=== PATIENT | female | born 1990 | race Caucasian/White ===

== ENCOUNTER 2025-02-03 18:17 | Outpatient (CLI) | payer BC ==
[2025-02-03 19:21] LABS: Bacteria,Urine Occasional /hpf; Bilirubin,Urine Negative (Negative); Blood,Urine Negative (Negative); Color,Urine Yellow; Glucose,Urine (UA) Negative (Negative); Ketones,Urine Negative (Negative); Leukocyte Esterase,Urine Moderate (Negative); Mucus,Urine Rare /hpf; Nitrite,Urine Negative (Negative); PH, Urine 6.5 (5.0-8.0); Protein,Urine Trace (Negative); RBC,Urine 1 /hpf (0-5); Specific Gravity,Urine 1.022 (1.001-1.035); Squamous Epithelial Cell,Urine 7 /hpf (0-4); Urobilinogen,Urine <2.0 mg/dL (<2.0); WBC,Urine 11 /hpf (0-5)
[2025-02-03] MEDS: ACETAMINOPHEN IV (For NPO) 1,000 MG in EMPTY BAG 1 BAG IVPB ONE (21:04)
[2025-02-03] MEDS: LACTATED RINGERS 1,000 ML IV ONE (21:05)
[2025-02-03 21:24] LABS: Basophils # (A) 0.12 10*3/uL (0.00-0.10); Basophils % (A) 0.7 %; Eosinophils # (A) 0.27 10*3/uL (0.04-0.35); Eosinophils % (A) 1.5 %; HCT 35.7 % (37.2-46.3); HGB 11.9 g/dL (12.0-15.0); Lymphocytes # (A) 3.40 10*3/uL (0.90-5.00); Lymphocytes % (A) 19.2 %; MCH 30.4 pg (27.0-32.0); MCHC 33.3 g/dL (32.0-37.0); MCV 91.1 fL (80.0-97.0); Monocytes # (A) 1.53 10*3/uL (0.20-1.00); Monocytes % (A) 8.6 %; Neutrophils # (A) 11.77 10*3/uL (1.80-7.70); Neutrophils % (A) 66.5 %; Platelet Count 406 10*3/uL (140-440); RBC 3.92 10*6/uL (4.10-5.20); RDW 13.7 % (11.5-14.5); WBC 17.71 10*3/uL (4.50-10.00)
[2025-02-03 21:31] LABS: ALT 23 U/L (4-34); AST 25 U/L (14-36); African American GFR (CKD) >90 (>60 ml/min/1.73 sqM); Albumin 4.0 g/dL (3.5-5.0); Alkaline Phosphatase 149 U/L (38-126); Anion Gap 9 mmol/L; Blood Urea Nitrogen 7 mg/dL (7-17); Calcium 9.9 mg/dL (8.4-10.2); Carbon Dioxide 21 mmol/L (22-30); Chloride 107 mmol/L (98-107); Glucose 86 mg/dL (74-99); Non-African American GFR(CKD) >90 (>60 ml/min/1.73 sqM); Potassium 4.4 mmol/L (3.5-5.1); Sodium 137 mmol/L (137-145); Total Protein 7.2 g/dL (6.3-8.2)
[2025-02-04 02:11] VITALS: BP 122/74; PULSE 106; RESP 16; TEMP 97.2
--- NOTE | 2025-03-11 10:04 | P.MSEPDOC ---
Presenting Problems - Arrival Data Date of Arrival on Unit: 02/03/25 Time of Arrival on Unit: 18:17 Mode of Transport: Ambulatory - Complaint OB-Reason for Admission/Chief Complaint: Other Comment: Pt reports to traige with c/o left hip/pelvic pain wrapping around to lower back.Pt reports pain started saturday occasionally and has become more frequent and intense last night and today Medical History - Information : 1 Para: 0 Term: 0 : 0 Number of Living Children: 0 - Gestational Age Gestational Age by RACHAEL (wks/days): 31 Weeks and 1 Days Review of Systems - Review of Systems Constitutional: No problems Breast: No problems ENT: No problems Cardiovascular: No problems Respiratory: No problems Gastrointestinal: No problems Genitourinary: No problems Musculoskeletal: No problems Neurological: No problems Skin: No problems Vital Signs - Temperature Temperature: 97.2 F Temperature Source: Temporal Artery Scan - Pulse Right Pulse Rate: 106 Pulse Assessment Method: Automatic Cuff - Respirations Respiratory Rate: 16 Oxygen Delivery Method: Room Air O2 Sat by Pulse Oximetry: 98 - Blood Pressure Right Arm Blood Pressure: 122/74 Blood Pressure Mean: 90 Blood Pressure Source: Automatic Cuff Medical Screen Scoring - Uterine Contractions Frequency From (mins): 0 Frequency To (mins): 0 Duration From (seconds): 0 Duration To (seconds): 0 Resting: Soft to palpation - Assessment - Baby A Baseline FHR: 125 Heart Rate - NICHD Category: Category I (Normal) NST: Reactive Physician Notification - Physician Notified Physician Notified Date: 02/03/25 Physician Notified Time: 23:06 Physician: Fatoumata Perez - Notification Comment Comment: Dr Perez updated with pts continued lt sided lower abd pain rates 8/10 comes in waves about 3-5 min apart. Pt points to under abdomen lt groin area. Family history of kidney stones. FHR Cat 1. baby active. 1 L iv fluid in. orders received to discharge pt home with instructions to strain urine, push oral fluids, may take tylenol for pain not to exced 4000mg per day. give pt urine strainer Maternal Triage Index - Maternal Triage Index Presenting for scheduled procedure w/no complaint: No - Stat/Priority 1 Stat Priority 1: No - Urgent/Priority 2 Urgent Priority 2: No - Prompt/Priority 3 Prompt Priority 3: No - Non-Urgent/Priority 4 Non-Urgent Priority 4: Yes Criteria Met for Priority 4: lower left groin pain coming in waves fam history kidney stones. Disposition - Disposition OB Disposition: Discharge to home Discharge Date: 02/04/25 Discharge Time: 00:09 I agree with the RN Medical Screening Exam: Yes Physician's MSE Comment: I have neither seen nor examined the patient Case reviewed; plan agreed upon as documented in EMR&OBIX.: Yes Diagnosis: RELATED CONDITIONS, UNSPECIFIED, THIRD TRIMESTER
== END 2025-02-04 00:09 | disposition home or self-care (01) ==
LOC: FBPOP 18:17
PROVIDERS: ATTEND Obstetrics & Gynecology
DX: O26.893 Other specified pregnancy related conditions, third trimester (principal); Z3A.31 31 weeks gestation of pregnancy
CPT/HCPCS: 59025; 99213; 96361; 96365; 36415; 80053; 85025; 81001; 87086; J0131